=== PATIENT | male | born 2000 | race American Indian/Alaskan Native ===

== ENCOUNTER 2023-03-25 21:04 | Emergency (ER) | payer OTHER ==
[~2023-03-25] VITALS: Ht 172.7 cm; Wt 81.1 kg
[2023-03-25 21:53] LABS: BASO # 0.1 10^3/uL (0.0-0.2); BASO % 0.6 % (0.0-1.0); HEMOGLOBIN 15.7 g/dl (13.5-17.5); LYMPH # 1.9 10^3/uL (1.5-5.0); LYMPH % 15.1 % (24.0-44.0); MEAN CORPUSCULAR HEMOGLOBIN 29.7 pg (27.0-33.0); MEAN CORPUSCULAR HGB CONC 34.1 g/dl (32.0-36.5); MEAN CORPUSCULAR VOLUME 87.1 fl (80.0-96.0); MONO # 0.7 10^3/uL (0.0-0.8); MONO % 5.6 % (2.0-8.0); NEUTROPHILS # 9.6 10^3/uL (1.5-8.5); NEUTROPHILS % 78.2 % (36.0-66.0); PLATELET COUNT, AUTOMATED 294 10^3/uL (150-450); RED BLOOD COUNT 5.28 10^6/uL (4.30-6.10); WHITE BLOOD COUNT 12.3 10^3/uL (4.0-10.0)
[2023-03-25 22:13] LABS: CK-MB VALUE MASS 5.2 NG/ML (<3.6)
[2023-03-25 22:15] LABS: BLOOD UREA NITROGEN 9 MG/DL (9-23); CARBON DIOXIDE LEVEL 27 MMOL/L (20-31); CHLORIDE LEVEL 103 MMOL/L (98-107); CREATININE FOR GFR 0.92 MG/DL (0.70-1.30); GLOMERULAR FILTRATION RATE > 60.0 (>60); GLUCOSE, FASTING 114 MG/DL (60-100); POTASSIUM SERUM 4.1 MMOL/L (3.5-5.1); SODIUM LEVEL 140 MMOL/L (136-145)
[2023-03-25 22:17] LABS: CPK CREATINE PHOSPHOKINASE 520 U/L (46-171)
[2023-03-25 22:23] LABS: RSV AMPLIFICATION NEGATIVE (NEGATIVE)
[2023-03-25 22:34] LABS: FREE T4 1.12 NG/DL (0.89-1.76)
[2023-03-25 23:26] LABS: CK-MB VALUE MASS 3.8 NG/ML (<3.6)
[2023-03-25 23:27] LABS: MB/CK RELATIVE INDEX 0.86 (< OR =4)
[2023-03-25] MEDS ORDERED: NS 1,000 ML IV ONE (23:40)
[2023-03-26 00:19] VITALS: TEMP 98.6
[2023-03-26 01:19] VITALS: BP 128/74; O2SAT 95
== END 2023-03-26 01:41 | disposition home or self-care (01) ==
LOC: M ED 21:04
DX: R00.0 Tachycardia, unspecified (principal); I45.10 Unspecified right bundle-branch block; F10.10 Alcohol abuse, uncomplicated